=== PATIENT | male | born 1970 ===

== ENCOUNTER 2018-01-16 13:28 | Inpatient (IN) | payer OTHER, MEDICAID ==
--- NOTE | 2018-01-16 14:00 | C.PDOC ---
History Of Present Illness 47 y/o male with history of HTN and HEP C presents to ED transferred from [facility] and medically cleared by Dr. Varela with c/o depression. Patient denies SI/HI or any other physical complaints at this time. Time Seen by Provider: 01/16/18 13:48 History Per: Patient History/Exam Limitations: no limitations Onset/Duration Of Symptoms: Days Current Symptoms Are (Timing): Still Present Suicide/Self Injury Attempted (Context): None Modifying Factor(s): None Associated Symptoms: Depression Past Medical History Reviewed: Historical Data, Nursing Documentation, Vital Signs Vital Signs: Last Vital Signs Temp 97.8 F 01/20/18 06:37 Pulse 60 01/20/18 06:37 Resp 18 01/20/18 06:37 BP 117/76 01/20/18 06:37 Pulse Ox 96 01/19/18 07:20 - Medical History PMH: Hepatitis (C), HIV, HTN, Kidney Stones Surgical History: Back Surgery - [facility] Procedures INDIVID PSYCHOTHERAP NEC (02/26/15) OTHER GROUP THERAPY (02/26/15) PSYCHIAT DRUG THERAP NEC (02/26/15) Family History: States: No Known Family Hx - Social History Hx Alcohol Use: Yes Hx Substance Use: Yes - Immunization History Hx Tetanus Toxoid Vaccination: No Hx Influenza Vaccination: No Hx Pneumococcal Vaccination: No Review Of Systems Except As Marked, All Systems Reviewed And Found Negative. Psych: Positive for: Depression Physical Exam - Physical Exam Appears: Non-toxic, No Acute Distress Skin: Warm, Dry, No Rash Head: Atraumatic, Normacephalic Eye(s): bilateral: Normal Inspection Oral Mucosa: Moist Neck: Supple Cardiovascular: Rhythm Regular Respiratory: Normal Breath Sounds, No Rales, No Rhonchi, No Wheezing Gastrointestinal/Abdominal: Soft, No Tenderness, No Guarding, No Rebound Back: No CVA Tenderness Extremity: Normal ROM, Capillary Refill (<2 seconds) Neurological/Psych: Oriented x3, Normal Speech, Normal Cognition ED Course And Treatment O2 Sat by Pulse Oximetry: 100 (RA) Pulse Ox Interpretation: Normal Disposition Discussed With : Chelsea Montelongo Doctor Will See Patient In The: Hospital Counseled Patient/Family Regarding: Studies Performed, Diagnosis - Disposition Disposition: HOSPITALIZED Disposition Time: 14:00 Condition: FAIR - Clinical Impression Clinical Impression: Depression - Scribe Statement The provider has reviewed the documentation as recorded by the Eleno [place] All medical record entries made by the Eleno were at my direction and personally dictated by me. I have reviewed the chart and agree that the record accurately reflects my personal performance of the history, physical exam, medical decision making, and the department course for this patient. I have also personally directed, reviewed, and agree with the discharge instructions and disposition.
--- NOTE | 2018-01-16 14:01 | C.PDOC ---
Time Seen by Provider: 01/16/18 13:48 Past Medical History - Medical History PMH: Hepatitis (C), HIV, HTN, Kidney Stones Denies: Depression, Sexually Transmitted Disease Surgical History: Back Surgery - [facility] Procedures INDIVID PSYCHOTHERAP NEC (02/26/15) OTHER GROUP THERAPY (02/26/15) PSYCHIAT DRUG THERAP NEC (02/26/15) - Social History Hx Alcohol Use: Yes Hx Substance Use: Yes - Immunization History Hx Tetanus Toxoid Vaccination: No Hx Influenza Vaccination: No Hx Pneumococcal Vaccination: No Disposition Discussed With : Chelsea Montelongo Doctor Will See Patient In The: Hospital Counseled Patient/Family Regarding: Studies Performed, Diagnosis - Disposition Disposition: HOSPITALIZED Disposition Time: 14:00 Condition: FAIR
--- NOTE | 2018-01-16 15:13 | PCM.BM ---
<Ariadne Figueroa - Last Filed: 01/16/18 15:10> Treatment Plan Problems - Problems identified on initial assessmt Depression Date Initiated: 01/16/18 Time Initiated: 15:10 Assessment reference: NA Status: Active Suicidal Ideations Date Initiated: 01/16/18 Time Initiated: 15:10 Assessment reference: NA Status: Active Treatment assets and liabiliti Patient Assests: cooperative, insightful, resourceful, self-reliant, ADL independent, negotiates basic needs, cognitively intact Patient Liabilities: financial problems, poor support system, relationship conflicts, substance abuse, medical problems - Milieu Protocol Maintain good personal hygiene: daily Encourage regular showers, daily Remind patient to perform daily oral care, daily Assist patient to perform ADL's Conduct patient checks and document Observation sheet: Q15 minutes Maintain personal safety: every shift Educate patient to report safety concerns to staff, every shift Monitor environment for contraband/sharps Medication safety: Monitor for expected outcome, potential side effects: every shift, Assess barriers to learning: every shift, Assess readiness for medication education: every shift <Chelsea Montelongo - Last Filed: 01/17/18 13:39> - Diagnosis (1) Depression Status: Acute Interventions: 01/17/18 13:39 * Assess/adjust medications daily and /or as needed * See patient on an individual basis 7x/week to assess symptoms of depression * Monitor for side effects & effectiveness of medications * <Mary Driscoll - Last Filed: 01/17/18 15:43> Family Contact Family involvement: Patient does not wish Family/SO involvement Family contact: Patient declines to allow family contact at present - Goals for Treatment Patient goals for treatment: "I want a outpatient program in [place], [place] Discharge/Continuing Care - Education Needs Education Needs: Patient Medication, Patient Diagnosis/Disease Process, Patient Coping Skills, Patient Placement options, Patient Community resources - Discharge Discharge Criteria: Free of Suicidal thoughts, Normal sleep pattern, Ability to care for self, No longer exhibiting s/s of withdrawal, Reduction of target symptoms Discharge to:: Home - Treatment Team Participation Discussed with Family/SO: No Was Patient/Family/SO present at Treatment Team Meeting: Yes
--- NOTE | 2018-01-16 16:13 | PCM.PSYCH ---
Initial Psychiatric Evaluation - Initial Psychiatric Evaluation Type of Admission: Voluntary Legal Status: Capacity Chief Complaint (in patient's own words): "I overdosed on ibuprofen." History of Present Illness and Precipitating Events: Pt was evaluated at bedside. Chart was reviewed with the nursing staff. Pt is a 47 year old male with no children who was transferred from [facility] for depressed mood and suspected suicidal attempt, by overdose on 40 ibuprofen 200 mg pills. When asked, pt reports that he was not trying to take his life and was only "just depressed." Pt was flat and withdrawn and expressed that he was tired and "just wants to rest" multiple times. Pt states that he overdosed on ibuprofen pills because he was feeling depressed, hopeless and helpless. He lives with his mother. Pt states that he overdosed "years ago" again due to his depression. He was referred to an outpatient psychiatrist but never went because he states that he is "not good with appointments." Pt denies homicidal ideation. Pt denies any auditory or visual hallucinations or any paranoia. Pt drinks 3-4 cans of beer 2 times per week and smokes 10 cigarettes per day since 15. He denies marijuana, heroin, PCP , or LSD use. Pt states used to use cocaine years ago but does not anymore. Pt is Hep C and HIV positive. Pt requests a nicotine patch and pills to sleep. Pt needs time to stabilize on medications. PMH: HTN, HIV Current Medications: Active Medications Generic Name Dose Route Start Last Admin Trade Name Freq PRN Reason Stop Dose Admin Pneumococcal Polyvalent Vaccine 0.5 ml 01/20/18 18:00 Pneumovax 23 Vaccine IM 01/20/18 18:01 .ONCE ONE Past Psychiatric History - Past Psychiatric History Previous Treatment History: Inpatient Prior Professional Help: [facility] Pertinent Medical Hx (Current Medical&Sleep Prob, Allergies): Allergies Allergy/AdvReac Type Severity Reaction Status Date / Time No Known Allergies Allergy Verified 01/16/18 14:09 amLODIPine [Norvasc] 10 mg PO DAILY 01/16/18 Review of Systems - Review of Systems All systems: reviewed and no additional remarkable complaints except - Psychiatric Psychiatric: Behavioral Changes, Change in Appetite, Depression, Hopelessness, Suicidal Ideation. absent: Anxiety, Auditory Hallucinations, Hallucinations, Homicidal Ideation, Mood Swings, Paranoia, Visual Hallucinations, Tactile Hallucinations Mental Status Examination - Personal Presentation Personal Presentation: Looks stated age - Affect Affect: Constricted, Depressed - Motor Activity Motor Activity: Psychomotor Retardation - Reliability in Providing Information Reliability in Providing Information: Good - Speech Speech: Organized - Mood Mood: Depressed - Formal Thought Process Formal Thought Process: No Impairment - Obsessions/Compulsions Obsessions: No Compulsions: No - Cognitive Functions Orientation: Person, Place, Situation, Time Sensorium: Alert Attention/Concentration: Attentive Abstract Thinking: Dewy Rose Estimate of Intelligence: Below average Judgement: Imparied, as evidence by: Poor judgement, Imparied, as evidence by: Lack of insight into illness - Risk Risk: Suicidal, Diminished functioning - Limitations Limitations: Living alone DSM 5 DX - DSM 5 DSM 5 Diagnosis: Major depressive disorder recurrent severe without psychotic features Alcohol use disorder moderate - Recommended/Plan of Treatment Treatment Recommendations and Plan of Treatment: Major depressive disorder recurrent severe without psychotic features -CBT -Psychoeducation -Supportive therapy, group therapy -Zoloft 50 mg by mouth daily -Remeron 15 mg PO QHS -Trazodone for insomnia -Hydroxyzine for anxiety Alcohol use disorder moderate -CBT -Psychoeducation -Supportive therapy, individual therapy -Use [place] for abstinence HTN -Continue prescribed medications HIV -Continue prescribed medications - Smoking Cessation Smoking Cessation Initiated: No
[2018-01-17] MEDS: Multiple Vitamins Tab PO SCH (12:14)
[2018-01-17] MEDS: Emtricitabine-Tenofovir 200 mg-300 mg Tab PO SCH (14:14)
--- NOTE | 2018-01-17 15:43 | PCM.PYCHPN ---
Psychiatric Progress Note - Psychiatric Progress Note Patient seen today, length of contact: 15 min Patient Chief Complaint: "I overdosed on ibuprofen." Problems Identified/Issues Discussed: Pt was evaluated at bedside. Chart was reviewed with the nursing staff. Pt today was more alert and talkative and additional history was able to be obtained. Pt sits up during evaluation and is able to answer coherently but cannot recall some information. Pt remains flat and withdraw. Pt again reports that he was not attempting to take his life when he overdosed but did it because he was feeling extremely depressed about his life. Pt has overdosed 5 times before but again says that these were not suicide attempts. When asked further, he states that he worries a lot because he is on probation and he has a scheduled call on 01/20/18 at 11 am for a "driving problem" that happened so long ago he can't remember exactly what it was. Pt denies anxiety or depressed mood at the current moment. Pt spends the day isolated in his room sleeping, and he states that this is because he cannot sleep at night because he is very restless. He states that it is only at night that he feels anxious and as if his mind is racing with worry. Pt requests sleeping pills and a nicotine patch as he is feeling "on edge" from a lack of smoking. Pt denies A/H, V/H, or paranoia. He expresses interest in an outpatient referal in [place], [place] where he is currently living with his mother. Per the nurse report, pt has borderline personality disorder. Pt denies ever being diagnosed with any psychiatric illness. Pt needs time to stabilize on medications. Medication Change: No Medical Record Reviewed: Yes Mental Status Examination - Cognitive Function Orientation: Person, Place, Situation, Time Memory: Impaired Attention: WNL Concentration: Poor Association: WNL Fund of Knowledge: Poor - Mood Mood: Depressed - Affect Affect: Flat, Depressed - Speech Speech: Appropriate, Soft - Formal Thought Process Formal Thought Process: No Impairment - Suicidal Ideation Suicidal Ideation: Yes - Homicidal Ideation Homicidal Ideation: No Goal/Treatment Plan - Goal/Treatment Plan Need for Continued Stay: Severe depression anxiety, Discharge may exacerbated symptoms, Severe functional impairment Progress Toward Problem(s) and Goals/Treatment Plan: Major depressive disorder recurrent severe without psychotic features -CBT -Psychoeducation -Supportive therapy, group therapy -Zoloft 50 mg by mouth daily -Remeron 15 mg PO QHS -Trazodone for insomnia -Hydroxyzine for anxiety Alcohol use disorder moderate -CBT -Psychoeducation -Supportive therapy, individual therapy -Use [place] for abstinence HTN -Continue prescribed medications HIV -Continue prescribed medications
[2018-01-18] MEDS: Multiple Vitamins Tab PO SCH (09:07)
[2018-01-18] MEDS: Emtricitabine-Tenofovir 200 mg-300 mg Tab PO SCH (09:08)
--- NOTE | 2018-01-18 19:06 | PCM.PYCHPN ---
Psychiatric Progress Note - Psychiatric Progress Note Patient seen today, length of contact: 15 minutes Patient Chief Complaint: I'm feeling little better. I have some sleeping difficulty. Problems Identified/Issues Discussed: Patient seen, chart reviewed, case discussed with the staff. Issues related to illness and treatment were discussed with the patient and staff. Reported compliant with treatment with no adverse affects. Tolerating treatment very well. Calm and cooperative. Mood reported as depressed. Affect appropriate. Reported feeling little better. He needs more time for stabilization. Aftercare discussed with the patient. Patient was awake, alert and oriented 3. Denied any delusions, auditory or visual hallucinations, suicidal ideations or homicidal ideations at the time of evaluation Medical Problems: Hypertension Diagnostic Results: Reviewed Medication Change: Yes (Dose of trazodone increased to 100 mg.) Medical Record Reviewed: Yes Mental Status Examination - Cognitive Function Orientation: Person, Place, Situation, Time Memory: Intact, Impaired Attention: WNL Concentration: WNL Association: WNL Fund of Knowledge: WN Decription of patient's judgement and insights: Fair - Mood Mood: Depressed - Affect Affect: Depressed - Speech Speech: Appropriate - Formal Thought Process Formal Thought Process: No Impairment Psychotic Thoughts and Behaviors: None - Suicidal Ideation Suicidal Ideation: No - Homicidal Ideation Homicidal Ideation: No Goal/Treatment Plan - Goal/Treatment Plan Need for Continued Stay: Remain at risks for inpatient hospitalization, Discharge may exacerbated symptoms, Severe functional impairment Progress Toward Problem(s) and Goals/Treatment Plan: Patient education. Supportive therapy. Dose of trazodone increased to 100 mg at bedtime. Continue rest of the treatment as before. Estimated Date of D/C: 01/24/18 - Smoking Cessation Smoking Cessation Initiated: No
[2018-01-19] MEDS: Multiple Vitamins Tab PO SCH (09:12)
--- NOTE | 2018-01-19 16:39 | PCM.PYCHPN ---
Psychiatric Progress Note - Psychiatric Progress Note Patient seen today, length of contact: 15 minutes Patient Chief Complaint: I'm feeling little better. I need my HIV medications. Problems Identified/Issues Discussed: Patient seen, chart reviewed, case discussed with the staff. Issues related to illness and treatment were discussed with the patient and staff. Reported compliant with treatment with no adverse affects. Tolerating treatment very well. Calm and cooperative. Mood reported as depressed. Affect appropriate. Reported feeling little better. He needs more time for stabilization. Aftercare discussed with the patient. Patient was awake, alert and oriented 3. Denied any delusions, auditory or visual hallucinations, suicidal ideations or homicidal ideations at the time of evaluation Medical Problems: Hypertension HIV Diagnostic Results: Reviewed DSM 5 Symptoms Update: Some improvement with treatment. Medication Change: Yes (We will start his HIV medications) Medical Record Reviewed: Yes Mental Status Examination - Cognitive Function Orientation: Person, Place, Situation, Time Memory: Intact, Impaired Attention: WNL Concentration: WNL Association: WNL Fund of Knowledge: WN Decription of patient's judgement and insights: Fair - Mood Mood: Depressed - Affect Affect: Depressed - Speech Speech: Appropriate - Formal Thought Process Formal Thought Process: No Impairment Psychotic Thoughts and Behaviors: None - Suicidal Ideation Suicidal Ideation: No - Homicidal Ideation Homicidal Ideation: No Goal/Treatment Plan - Goal/Treatment Plan Need for Continued Stay: Remain at risks for inpatient hospitalization, Discharge may exacerbated symptoms, Severe functional impairment Progress Toward Problem(s) and Goals/Treatment Plan: Patient education. Supportive therapy. We will start his HIV medications. Continue rest of the treatment as before. Estimated Date of D/C: 01/24/18 - Smoking Cessation Smoking Cessation Initiated: Yes
[2018-01-19] MEDS: Abacavir/Lamivudine 600 mg-300 mg Tab PO SCH (18:51)
[2018-01-20] MEDS: Abacavir/Lamivudine 600 mg-300 mg Tab PO SCH (09:06)
[2018-01-20] MEDS: Multiple Vitamins Tab PO SCH (09:07)
--- NOTE | 2018-01-20 10:38 | PCM.PYCHPN ---
Psychiatric Progress Note - Psychiatric Progress Note Patient seen today, length of contact: 15 min Patient Chief Complaint: "I feel good" Problems Identified/Issues Discussed: Patient seen and evaluated, chart reviewed and discussed with the nurse. He reports some improvement in his depressed mood and reports some improvement in the feelings of hopelessness and helplessness. He reports improvement in the withdrawal symptoms. He denies any AVH or any paranoia. Patient is compliant with medications and denies any side effects. Symptoms are improving but need more time to stabilize. Support and psychoeducation given. Medication Change: No Medical Record Reviewed: Yes Mental Status Examination - Cognitive Function Orientation: Person, Place, Situation, Time Memory: Impaired Attention: WNL Concentration: Poor Association: WNL Fund of Knowledge: Poor - Mood Mood: Depressed - Affect Affect: Constricted, Blunted, Depressed - Speech Speech: Appropriate, Soft - Formal Thought Process Formal Thought Process: No Impairment - Suicidal Ideation Suicidal Ideation: No - Homicidal Ideation Homicidal Ideation: No Goal/Treatment Plan - Goal/Treatment Plan Need for Continued Stay: Severe depression anxiety, Discharge may exacerbated symptoms, Severe functional impairment Progress Toward Problem(s) and Goals/Treatment Plan: Major depressive disorder recurrent severe without psychotic features -CBT -Psychoeducation -Supportive therapy, group therapy -Zoloft 100 mg by mouth daily -Remeron 15 mg PO QHS -Trazodone for insomnia -Hydroxyzine for anxiety Alcohol use disorder moderate -CBT -Psychoeducation -Supportive therapy, individual therapy -Use [place] for abstinence HTN -Continue prescribed medications HIV -Continue prescribed medications Estimated Date of D/C: 01/24/18
[2018-01-20] MEDS ORDERED: Pneumococcal 23-Valent Vaccine IM ONE (18:00)
[2018-01-21] MEDS: Multiple Vitamins Tab PO SCH (10:30)
[2018-01-21] MEDS: Abacavir/Lamivudine 600 mg-300 mg Tab PO SCH (10:33)
[2018-01-21 14:15] LABS: ALB/GLOB RATIO 0.8 (1.0-2.1); ALBUMIN 3.4 g/dL (3.5-5.0); ALT/SGPT 279 U/L (21-72); AST/SGOT 361 U/L (17-59); BLOOD UREA NITROGEN 15 mg/dL (9-20); CALCIUM 8.5 mg/dl (8.6-10.4); GFR AFRICAN-AMERICAN > 60; GFR NON-AFRICAN AMERICAN > 60; LIPASE 108 U/L (23-300)
--- NOTE | 2018-01-21 15:15 | PCM.PYCHPN ---
Psychiatric Progress Note - Psychiatric Progress Note Patient seen today, length of contact: 15 min Patient Chief Complaint: "I feel better." Problems Identified/Issues Discussed: Patient seen and evaluated, chart reviewed and discussed with the nurse. He reports some improvement in his depressed mood and reports some improvement in the feelings of hopelessness and helplessness. He reports improvement in the withdrawal symptoms. He denies any AVH or any paranoia. Patient is compliant with medications and denies any side effects. Symptoms are improving but need more time to stabilize. Support and psychoeducation given. Medication Change: Yes (increase remeron) Medical Record Reviewed: Yes Mental Status Examination - Cognitive Function Orientation: Person, Place, Situation, Time Memory: Intact Attention: WNL Concentration: WNL Association: WNL Fund of Knowledge: Poor - Mood Mood: Depressed, Anxious - Affect Affect: Constricted, Blunted, Depressed - Speech Speech: Appropriate, Soft - Formal Thought Process Formal Thought Process: No Impairment - Suicidal Ideation Suicidal Ideation: No - Homicidal Ideation Homicidal Ideation: No Goal/Treatment Plan - Goal/Treatment Plan Need for Continued Stay: Severe depression anxiety, Discharge may exacerbated symptoms, Severe functional impairment Progress Toward Problem(s) and Goals/Treatment Plan: Major depressive disorder recurrent severe without psychotic features -CBT -Psychoeducation -Supportive therapy, group therapy -Zoloft 100 mg by mouth daily -Remeron 30 mg PO QHS -Trazodone for insomnia -Hydroxyzine for anxiety Alcohol use disorder moderate -CBT -Psychoeducation -Supportive therapy, individual therapy -Use [place] for abstinence HTN -Continue prescribed medications HIV -Continue prescribed medications Estimated Date of D/C: 01/24/18
[2018-01-21] MEDS ORDERED: Vitamins A & D Oint UD Foilpak TOP PRN (18:30)
[2018-01-22] MEDS: Abacavir/Lamivudine 600 mg-300 mg Tab PO SCH (09:54)
[2018-01-22] MEDS: Multiple Vitamins Tab PO SCH (09:54)
--- NOTE | 2018-01-22 11:22 | PCM.PYCHPN ---
Psychiatric Progress Note - Psychiatric Progress Note Patient seen today, length of contact: 15 min Patient Chief Complaint: "I feel better." Problems Identified/Issues Discussed: Patient seen and evaluated, chart reviewed and discussed with the nurse. As per the staff, he is doing better. He wants to go to the rehab after discharge. He reports some improvement in his depressed mood and reports some improvement in the feelings of hopelessness and helplessness. He reports improvement in the withdrawal symptoms. He denies any AVH or any paranoia. Patient is compliant with medications and denies any side effects. Symptoms are improving but need more time to stabilize. Support and psychoeducation given. Medication Change: Yes Medical Record Reviewed: Yes Mental Status Examination - Cognitive Function Orientation: Person, Place, Situation, Time Memory: Intact Attention: WNL Concentration: WNL Association: WNL Fund of Knowledge: Poor - Mood Mood: Anxious - Affect Affect: Broad - Speech Speech: Appropriate - Formal Thought Process Formal Thought Process: No Impairment - Suicidal Ideation Suicidal Ideation: No - Homicidal Ideation Homicidal Ideation: No Goal/Treatment Plan - Goal/Treatment Plan Need for Continued Stay: Severe depression anxiety, Discharge may exacerbated symptoms, Severe functional impairment Progress Toward Problem(s) and Goals/Treatment Plan: Major depressive disorder recurrent severe without psychotic features -CBT -Psychoeducation -Supportive therapy, group therapy -Zoloft 100 mg by mouth daily -Remeron 45 mg PO QHS -Trazodone for insomnia -Hydroxyzine for anxiety Alcohol use disorder moderate -CBT -Psychoeducation -Supportive therapy, individual therapy -Use [place] for abstinence HTN -Continue prescribed medications HIV -Continue prescribed medications Estimated Date of D/C: 01/24/18 - Smoking Cessation Smoking Cessation Initiated: No
[2018-01-22 16:26] VITALS: O2SAT 95
[2018-01-23 06:34] VITALS: BP 110/72; PULSE 63; RESP 18; TEMP 97.7
[2018-01-23] MEDS: Multiple Vitamins Tab PO SCH (10:05)
[2018-01-23] MEDS: Abacavir/Lamivudine 600 mg-300 mg Tab PO SCH (10:05)
--- NOTE | 2018-01-23 10:29 | PCM.PYCHDC ---
Mental Status Examination - Mental Status Examination Orientation: Person, Place, Situation, Time Memory: Intact Mood: Neutral Affect: Constricted Speech: Soft Attention: WNL Concentration: WNL Association: WNL Fund of Knowledge: WNL Formal Thought Process: No Impairment Description of patient's judgement and insight: good, fair Psychotic Thoughts and Behaviors: denies any AVH Suicidal Ideation: No Current Homicidal Ideation?: No Discharge Summary - Discharge Note Reason for Hospitalization: Pt was evaluated at bedside. Chart was reviewed with the nursing staff. Pt is a 47 year old male with no children who was transferred from [facility] for depressed mood and suspected suicidal attempt, by overdose on 40 ibuprofen 200 mg pills. When asked, pt reports that he was not trying to take his life and was only "just depressed." Pt was flat and withdrawn and expressed that he was tired and "just wants to rest" multiple times. Pt states that he overdosed on ibuprofen pills because he was feeling depressed, hopeless and helpless. He lives with his mother. Pt states that he overdosed "years ago" again due to his depression. He was referred to an outpatient psychiatrist but never went because he states that he is "not good with appointments." Pt denies homicidal ideation. Pt denies any auditory or visual hallucinations or any paranoia. Pt drinks 3-4 cans of beer 2 times per week and smokes 10 cigarettes per day since 15. He denies marijuana, heroin, PCP , or LSD use. Pt states used to use cocaine years ago but does not anymore. Pt is Hep C and HIV positive. Pt requests a nicotine patch and pills to sleep. Consultations:: List each consultation separately and include: 1. Reason for request. 2. Findings. 3. Follow-up Summary of Hospital Course include:: 1. Description of specific treatment plan utilized for patients during their course of treatmen. 2. Summarize the time- course for resolution of acute symptoms and/or regressed behaviors. 3. Describe issues identified and worked on during hospitalization. 4. Describe medication utilized. 5. Describe medical problems identified and treated. 6. Reassessment of suicide risk Summary of Hospital Course: During the course of his stay, patient (pt) started progressively improving and he no longer remained irritable, depressed, and suicidal. His mood and anxiety symptoms were improved and he started attending groups and meetings and started socializing. Patient denied any feelings of hopelessness, helplessness, and worthlessness, denied any problem with the sleep or appetite, denied suicidal ideation or homicidal ideation. Pt denied any auditory or visual hallucinations. He denied any withdrawal symptoms. Pt was treated with medications along with supportive therapy, milieu therapy and group therapy. Some changes were made in his current medications and patient was discharged on following medications. He tolerated these medications very well and denied any side effects. - Diagnosis (1) Depression Status: Acute - Final Diagnosis (DSM 5) Condition upon Discharge: FAIR DSM 5: Major depressive disorder recurrent severe without psychotic features Alcohol use disorder moderate Disposition: HOME/ ROUTINE Follow-up Treatment Plan: Follow up: [facility] [place] Education: Pt was educated and counseled about the risks and benefits of taking and not taking medications. Pt was educated and counseled about the risks of drinking and abusing drugs. Pt was educated and counseled to go to the ER or call 911 if pt develop suicidal ideation or homicidal ideation, worsening of symptoms or severe side effects of the meds. Prescriptions/Medication Reconciliation: amLODIPine [Norvasc] 10 mg PO DAILY #30 tab Mirtazapine [Remeron] 45 mg PO HS #30 tab Sertraline [Zoloft] 100 mg PO DAILY #30 tab traZODone [Desyrel] 100 mg PO HS PRN #30 tab PRN Reason: Insomnia - Smoking Cessation Smoking Cessation Medication prescribed: No - Antipsychotic Medications Pt discharged on 2 or more routine antipsychotic medications: No
== END 2018-01-23 11:29 | disposition home or self-care (01) | DRG 885 ==
LOC: C.ER 13:28 → C.5E 13:59
PROVIDERS: ADMIT Psychiatry & Neurology Psychiatry; ATTEND Psychiatry & Neurology Psychiatry
PROC: HZ2ZZZZ Detoxification Services for Substance Abuse Treatment (ICD-10-PCS; principal; 2018-01-16)
PROC: HZ52ZZZ Individual Psychotherapy for Substance Abuse Treatment, Cognitive-Behavioral (ICD-10-PCS; 2018-01-16)
PROC: HZ59ZZZ Individual Psychotherapy for Substance Abuse Treatment, Supportive (ICD-10-PCS; 2018-01-16)
PROC: HZ56ZZZ Individual Psychotherapy for Substance Abuse Treatment, Psychoeducation (ICD-10-PCS; 2018-01-16)
PROC: HZ42ZZZ Group Counseling for Substance Abuse Treatment, Cognitive-Behavioral (ICD-10-PCS; 2018-01-16)
PROC: HZ46ZZZ Group Counseling for Substance Abuse Treatment, Psychoeducation (ICD-10-PCS; 2018-01-16)
PROC: GZHZZZZ Group Psychotherapy (ICD-10-PCS; 2018-01-16)
PROC: GZ58ZZZ Individual Psychotherapy, Cognitive-Behavioral (ICD-10-PCS; 2018-01-16)
PROC: GZ56ZZZ Individual Psychotherapy, Supportive (ICD-10-PCS; 2018-01-16)
DX: F33.2 Major depressive disorder, recurrent severe without psychotic features (principal); B19.20 Unspecified viral hepatitis C without hepatic coma; F10.20 Alcohol dependence, uncomplicated; Y90.9 Presence of alcohol in blood, level not specified; I10 Essential (primary) hypertension; F17.210 Nicotine dependence, cigarettes, uncomplicated; Z21 Asymptomatic human immunodeficiency virus [HIV] infection status; T39.312A Poisoning by propionic acid derivatives, intentional self-harm, initial encounter; F41.8 Other specified anxiety disorders; G47.00 Insomnia, unspecified